=== PATIENT | male | born 1950 | race Caucasian/White ===

== ENCOUNTER 2019-03-15 20:14 | Emergency (ER) | payer MEDICARE ==
[~2019-03-15] VITALS: Ht 170.2 cm; Wt 81.7 kg
[~2019-03-15 20:14] MED LIST: AMOX1XR PO; Keflex500 MG PO; OXYACE5T PO; RXOXYACE PO; [UNRECOGNIZED DRUG - REMARK]
[2019-03-15] MEDS ORDERED: Cleocin HCl150 MG PO (21:00)
== END 2019-03-15 21:18 | disposition home or self-care (01) ==
LOC: ER 20:14
DX: L03.031 Cellulitis of right toe (principal); F17.210 Nicotine dependence, cigarettes, uncomplicated
CPT/HCPCS: 99283; A9270

== ENCOUNTER 2020-12-17 18:19 | Emergency (ER) | payer OTHER ==
[~2020-12-17] VITALS: Ht 170.2 cm; Wt 69.8 kg
[~2020-12-17 18:19] MED LIST changes: +Cleocin HCl150 MG PO
[2020-12-17] MEDS ORDERED: ROSU10TA PO (19:14)
[2020-12-17] MEDS ORDERED: AMLO5 PO (19:15)
[2020-12-17] MEDS ORDERED: ASPI81CH PO (19:15)
[2020-12-17] MEDS ORDERED: SILD25T PO (19:15)
[2020-12-17] MEDS ORDERED: PLAVIX75 MG PO (19:16)
[2020-12-17] MEDS ORDERED: PRED FORTE5 M1 RIGHTEYE (19:18)
[2020-12-17 19:20] LABS: Uric Acid, Blood 6.7 mg/dL (3.5-7.2)
[2020-12-17 20:06] LABS: BASOPHILS ABSOLUTE AUTO 0.07 K/mm3 (0.00-0.23); BASOPHILS PERCENT AUTO 0 % (0-2); EOSINOPHILS ABSOLUTE AUTO 0.24 K/mm3 (0.00-0.68); EOSINOPHILS PERCENT AUTO 1 % (0-6); Hemoglobin 15.6 g/dL (13.5-17.5); IMMATURE GRAN PERCENT AUTO 1 % (0-1); LYMPHOCYTES ABSOLUTE AUTO 1.16 K/mm3 (0.84-5.20); LYMPHOCYTES PERCENT AUTO 6 % (21-46); MONOCYTES ABSOLUTE AUTO 1.38 K/mm3 (0.16-1.47); MONOCYTES PERCENT AUTO 7 % (4-13); Mean Corpuscular HGB 30.5 pg (26.0-34.0); Mean Corpuscular HGB Conc 33.2 g/dL (31.5-36.5); Mean Corpuscular Volume 92 fL (80-100); Mean Platelet Volume 11.4 fL (9.1-12.4); NEUTROPHILS ABSOLUTE AUTO 15.62 K/mm3 (1.96-9.15); NEUTROPHILS PERCENT AUTO 84 % (41-73); Platelet Count 255 K/mm3 (150-400); RDW Coefficient Variation 12.7 % (11.7-14.2); RDW Standard Deviation 42.9 fL (35.1-46.3); Red Blood Cell Count 5.12 M/mm3 (4.30-5.90); White Blood Cell Count 18.57 K/mm3 (4.00-11.30)
[2020-12-17 20:16] LABS: Alanine Aminotransfer (ALT/SGP 35 U/L (12-78); Albumin, Blood 3.5 g/dL (3.4-5.0); Albumin/Globulin Ratio 0.9 (0.8-1.8); Alk Phos 85 U/L (50-136); Anion Gap 7 mmol/L (6-16); Aspartate Aminotrans (AST/SGOT 29 U/L (12-37); Bilirubin, Total 0.3 mg/dL (0.1-1.0); Blood Urea Nitrogen 21 mg/dL (8-24); Bun/Creatinine Ratio 17.6 (12.0-20.0); CO2, Blood 25 mmol/L (21-32); Calcium, Blood 9.1 mg/dL (8.5-10.1); Chloride, Blood 110 mmol/L (98-108); Creatinine, Blood 1.19 mg/dL (0.60-1.20); Globulin, Blood 3.9 g/dL (2.2-4.0); Glomerular Filtration Rate >60 (60-); Glucose, Blood 104 mg/dL (70-99); Sodium, Blood 142 mmol/L (136-145); Total Protein, Blood 7.4 g/dL (6.4-8.2)
== END 2020-12-17 23:04 | disposition home or self-care (01) ==
LOC: ER 18:19
PROVIDERS: Emergency Medicine; Physician Assistant
DX: M79.671 Pain in right foot (principal); F17.210 Nicotine dependence, cigarettes, uncomplicated; Z79.82 Long term (current) use of aspirin; Z79.899 Other long term (current) drug therapy; Z91.02 Food additives allergy status
CPT/HCPCS: 36415; 73630; 80053; 84550; 85025; 93922; 96374; 96375; 99284-25; J1885; J2270; J2405

== ENCOUNTER 2021-03-14 18:07 | Observation (INO) | payer OTHER ==
[~2021-03-14] VITALS: Ht 17.8 cm; Wt 80.4 kg
[~2021-03-14 18:07] MED LIST changes: +AMLO5 PO; +ASPI81CH PO; +PLAVIX75 MG PO; +PRED FORTE5 M1 RIGHTEYE; +ROSU10TA PO; +SILD25T PO
[2021-03-14 20:56] LABS: BASOPHILS PERCENT AUTO 1 % (0-2); EOSINOPHILS ABSOLUTE AUTO 0.38 K/mm3 (0.00-0.68); EOSINOPHILS PERCENT AUTO 2 % (0-6); Hematocrit 51.3 % (37.0-53.0); Hemoglobin 17.1 g/dL (13.5-17.5); IMMATURE GRAN ABSOLUTE AUTO 0.09 K/mm3 (0.00-0.10); IMMATURE GRAN PERCENT AUTO 1 % (0-1); LYMPHOCYTES ABSOLUTE AUTO 1.79 K/mm3 (0.84-5.20); LYMPHOCYTES PERCENT AUTO 11 % (21-46); MONOCYTES ABSOLUTE AUTO 1.24 K/mm3 (0.16-1.47); MONOCYTES PERCENT AUTO 8 % (4-13); Mean Corpuscular HGB 30.9 pg (26.0-34.0); Mean Corpuscular HGB Conc 33.3 g/dL (31.5-36.5); Mean Corpuscular Volume 93 fL (80-100); Mean Platelet Volume 11.6 fL (9.1-12.4); NEUTROPHILS PERCENT AUTO 77 % (41-73); Platelet Count 242 K/mm3 (150-400); RDW Coefficient Variation 12.7 % (11.7-14.2); RDW Standard Deviation 43.7 fL (35.1-46.3); Red Blood Cell Count 5.54 M/mm3 (4.30-5.90)
[2021-03-14 21:06] LABS: Alanine Aminotransfer (ALT/SGP 32 U/L (12-78); Albumin, Blood 3.5 g/dL (3.4-5.0); Albumin/Globulin Ratio 0.9 (0.8-1.8); Alk Phos 83 U/L (50-136); Anion Gap 6 mmol/L (6-16); Aspartate Aminotrans (AST/SGOT 20 U/L (12-37); Bilirubin, Total 0.3 mg/dL (0.1-1.0); Blood Urea Nitrogen 17 mg/dL (8-24); Bun/Creatinine Ratio 17.9 (12.0-20.0); CO2, Blood 27 mmol/L (21-32); Chloride, Blood 105 mmol/L (98-108); Creatinine, Blood 0.95 mg/dL (0.60-1.20); Globulin, Blood 3.9 g/dL (2.2-4.0); Glomerular Filtration Rate >60 (60-); Glucose, Blood 92 mg/dL (70-99); Potassium, Blood 4.1 mmol/L (3.5-5.5); Sodium, Blood 138 mmol/L (136-145); Total Protein, Blood 7.4 g/dL (6.4-8.2)
[2021-03-15 00:17] LABS: SARS-Cov-2 (COVID-19) PCR, MMC NEGATIVE (NEGATIVE)
[2021-03-15 04:23] LABS: BASOPHILS ABSOLUTE AUTO 0.06 K/mm3 (0.00-0.23); BASOPHILS PERCENT AUTO 1 % (0-2); EOSINOPHILS ABSOLUTE AUTO 0.37 K/mm3 (0.00-0.68); EOSINOPHILS PERCENT AUTO 3 % (0-6); Hematocrit 47.4 % (37.0-53.0); Hemoglobin 15.5 g/dL (13.5-17.5); IMMATURE GRAN ABSOLUTE AUTO 0.04 K/mm3 (0.00-0.10); IMMATURE GRAN PERCENT AUTO 0 % (0-1); LYMPHOCYTES ABSOLUTE AUTO 1.88 K/mm3 (0.84-5.20); LYMPHOCYTES PERCENT AUTO 16 % (21-46); MONOCYTES ABSOLUTE AUTO 1.09 K/mm3 (0.16-1.47); MONOCYTES PERCENT AUTO 9 % (4-13); Mean Corpuscular HGB 30.2 pg (26.0-34.0); Mean Corpuscular HGB Conc 32.7 g/dL (31.5-36.5); Mean Corpuscular Volume 92 fL (80-100); Mean Platelet Volume 11.1 fL (9.1-12.4); NEUTROPHILS ABSOLUTE AUTO 8.67 K/mm3 (1.96-9.15); NEUTROPHILS PERCENT AUTO 72 % (41-73); Platelet Count 201 K/mm3 (150-400); RDW Coefficient Variation 12.8 % (11.7-14.2); RDW Standard Deviation 43.6 fL (35.1-46.3); Red Blood Cell Count 5.13 M/mm3 (4.30-5.90); White Blood Cell Count 12.11 K/mm3 (4.00-11.30)
[2021-03-15 04:40] LABS: Anion Gap 3 mmol/L (6-16); Blood Urea Nitrogen 16 mg/dL (8-24); Bun/Creatinine Ratio 18.3 (12.0-20.0); CO2, Blood 28 mmol/L (21-32); Calcium, Blood 8.8 mg/dL (8.5-10.1); Chloride, Blood 107 mmol/L (98-108); Creatinine, Blood 0.87 mg/dL (0.60-1.20); Glomerular Filtration Rate >60 (60-); Glucose, Blood 99 mg/dL (70-99); Potassium, Blood 4.2 mmol/L (3.5-5.5); Sodium, Blood 138 mmol/L (136-145)
--- NOTE | 2021-03-15 04:58 | NUR ---
SHIFT SUMMARY PT NEW ADMIT THIS SHIFT. AAOX4. NPO. PT REPORTING DISCOMFORT AT TOLERABLE LEVEL SINCE ADMISSION, NO NAUSEA/EMESIS. ORIENTED TO ROOM + CALL LIGHT USE. IVF PER ORDERS. PT SBA UP IN ROOM. ABD SOFT/TENDER WITH PALPATION. PT CURRENTLY RESTING WELL IN BED WITH CALL LIGHT IN REACH.
--- NOTE | 2021-03-15 13:12 | NUR ---
PT TO OR AT ABOUT 1220
--- NOTE | 2021-03-15 17:59 | NUR ---
POST OP/DISCHARGE: REPORT RECEIVED FROM EXAMINATION PROCTOR TAMI. PT TO UNIT AT ABOUT 1510. UPON ASSESSMENT PT IS A/O, DENIES PAIN, VSS. SURGICAL SITE WNL. PT REQUESTING FOOD AND WATER. PT ABLE TO VOID POST OP, VSS AND ABLE TO AMBULATE TO BATHROOM, DENIES PAIN OR N/V. PT REQUESTING DISCHARGE. DR. PASTRANA NOTIFIED. DISCHARGE PACKET PRINTED AND PT EDUCATED, NO SCRIPTS NEEDED. IV DC'D WNL. PT REQUESTING TAXI RIDE TO THE [facility] TAXI CALLED AND MESSAGE LEFT AT 1750. PT DID NOT WANT TO WAIT IN ROOM FOR TAXI, SO LEFT HIS ROOM ON FOOT AFTER DISCHARGE INSTRUCTIONS. DENIED NEED FOR WHEELCHAIR.
--- NOTE | 2021-03-16 09:11 | NUR ---
03/16/21 0911 Mari Murphy VERIFICATIONS: EDIT CHART.
[2021-03-16] MEDS ORDERED: AMLO5 PO (18:31)
[2021-03-16] MEDS ORDERED: CEFP200 PO (18:31)
[2021-03-16] MEDS ORDERED: Aspir 8181 MG PO (18:31)
[2021-03-16] MEDS ORDERED: Plavix75 MG PO (18:32)
[2021-03-16] MEDS ORDERED: METR500 PO (18:33)
[2021-03-16] MEDS ORDERED: PRED FORTE5 M1 RIGHTEYE (18:34)
[2021-03-16] MEDS ORDERED: ROSU10TA PO (18:35)
[2021-03-16] MEDS ORDERED: SILDENAFIL CIT100 MG PO (18:37)
== END 2021-03-15 18:24 | disposition home or self-care (01) ==
LOC: ER 18:07 → SURS 18:08
PROVIDERS: Emergency Medicine; ADMIT Internal Medicine
DX: K42.0 Umbilical hernia with obstruction, without gangrene (principal); I10 Essential (primary) hypertension; I73.9 Peripheral vascular disease, unspecified; Z79.899 Other long term (current) drug therapy; Z20.822 Contact with and (suspected) exposure to COVID-19
CPT/HCPCS: 36415; 80048; 80053; 83605; 85025; 93005; 93010; 96374; 96375; 99285-25; G0378; J0690; J1100; J1885; J2270; J2405; J2704; J3010; J7030; J7120; U0004

== ENCOUNTER 2021-03-16 18:18 | Emergency (ER) | payer OTHER ==
[~2021-03-16] VITALS: Ht 170.2 cm; Wt 81.7 kg
[2021-03-16] MEDS ORDERED: AMLO5 PO (18:31)
[2021-03-16] MEDS ORDERED: Aspir 8181 MG PO (18:31)
[2021-03-16] MEDS ORDERED: CEFP200 PO (18:31)
[2021-03-16] MEDS ORDERED: Plavix75 MG PO (18:32)
[2021-03-16] MEDS ORDERED: METR500 PO (18:33)
[2021-03-16] MEDS ORDERED: PRED FORTE5 M1 RIGHTEYE (18:34)
[2021-03-16] MEDS ORDERED: ROSU10TA PO (18:35)
[2021-03-16] MEDS ORDERED: SILDENAFIL CIT100 MG PO (18:37)
[2021-03-16 20:19] LABS: BASOPHILS ABSOLUTE AUTO 0.06 K/mm3 (0.00-0.23); BASOPHILS PERCENT AUTO 0 % (0-2); EOSINOPHILS ABSOLUTE AUTO 0.24 K/mm3 (0.00-0.68); EOSINOPHILS PERCENT AUTO 1 % (0-6); Hemoglobin 16.1 g/dL (13.5-17.5); IMMATURE GRAN ABSOLUTE AUTO 0.08 K/mm3 (0.00-0.10); IMMATURE GRAN PERCENT AUTO 0 % (0-1); LYMPHOCYTES ABSOLUTE AUTO 2.14 K/mm3 (0.84-5.20); LYMPHOCYTES PERCENT AUTO 12 % (21-46); MONOCYTES ABSOLUTE AUTO 1.62 K/mm3 (0.16-1.47); MONOCYTES PERCENT AUTO 9 % (4-13); Mean Corpuscular HGB 30.8 pg (26.0-34.0); Mean Corpuscular HGB Conc 33.5 g/dL (31.5-36.5); Mean Corpuscular Volume 92 fL (80-100); Mean Platelet Volume 10.8 fL (9.1-12.4); NEUTROPHILS ABSOLUTE AUTO 13.98 K/mm3 (1.96-9.15); NEUTROPHILS PERCENT AUTO 77 % (41-73); Platelet Count 212 K/mm3 (150-400); RDW Coefficient Variation 12.9 % (11.7-14.2); RDW Standard Deviation 43.6 fL (35.1-46.3); Red Blood Cell Count 5.22 M/mm3 (4.30-5.90); White Blood Cell Count 18.12 K/mm3 (4.00-11.30)
== END 2021-03-16 23:20 | disposition home or self-care (01) ==
LOC: ER 18:18
PROVIDERS: Emergency Medicine
DX: R10.9 Unspecified abdominal pain (principal); F17.210 Nicotine dependence, cigarettes, uncomplicated; Z79.02 Long term (current) use of antithrombotics/antiplatelets; Z79.82 Long term (current) use of aspirin; Z98.890 Other specified postprocedural states
CPT/HCPCS: 74177; 85025; 96360-59; 99284-25; J7030; Q9967

== ENCOUNTER 2021-08-19 10:36 | Emergency (ER) | payer OTHER ==
[~2021-08-19] VITALS: Ht 170.2 cm; Wt 83.9 kg
[~2021-08-19 10:36] MED LIST changes: +Aspir 8181 MG PO; +CEFP200 PO; +METR500 PO; +Plavix75 MG PO; +SILDENAFIL CIT100 MG PO
[2021-08-19 11:15] LABS: BASOPHILS ABSOLUTE AUTO 0.04 K/mm3 (0.00-0.23); BASOPHILS PERCENT AUTO 0 % (0-2); EOSINOPHILS ABSOLUTE AUTO 0.14 K/mm3 (0.00-0.68); EOSINOPHILS PERCENT AUTO 2 % (0-6); Hematocrit 49.7 % (37.0-53.0); Hemoglobin 16.5 g/dL (13.5-17.5); IMMATURE GRAN ABSOLUTE AUTO 0.04 K/mm3 (0.00-0.10); IMMATURE GRAN PERCENT AUTO 0 % (0-1); LYMPHOCYTES ABSOLUTE AUTO 1.23 K/mm3 (0.84-5.20); LYMPHOCYTES PERCENT AUTO 14 % (21-46); MONOCYTES ABSOLUTE AUTO 0.86 K/mm3 (0.16-1.47); MONOCYTES PERCENT AUTO 10 % (4-13); Mean Corpuscular HGB 30.5 pg (26.0-34.0); Mean Corpuscular HGB Conc 33.2 g/dL (31.5-36.5); Mean Corpuscular Volume 92 fL (80-100); Mean Platelet Volume 11.1 fL (9.1-12.4); NEUTROPHILS ABSOLUTE AUTO 6.74 K/mm3 (1.96-9.15); NEUTROPHILS PERCENT AUTO 75 % (41-73); Platelet Count 281 K/mm3 (150-400); RDW Coefficient Variation 12.7 % (11.7-14.2); RDW Standard Deviation 42.9 fL (35.1-46.3); Red Blood Cell Count 5.41 M/mm3 (4.30-5.90); White Blood Cell Count 9.05 K/mm3 (4.00-11.30)
[2021-08-19 11:46] LABS: Alanine Aminotransfer (ALT/SGP 34 U/L (12-78); Albumin, Blood 2.9 g/dL (3.4-5.0); Albumin/Globulin Ratio 0.7 (0.8-1.8); Alk Phos 103 U/L (50-136); Anion Gap 5 mmol/L (6-16); Aspartate Aminotrans (AST/SGOT 35 U/L (12-37); Bilirubin, Total 0.5 mg/dL (0.1-1.0); Blood Urea Nitrogen 8 mg/dL (8-24); Bun/Creatinine Ratio 9.1 (12.0-20.0); CO2, Blood 28 mmol/L (21-32); Chloride, Blood 105 mmol/L (98-108); Creatinine, Blood 0.88 mg/dL (0.60-1.20); Globulin, Blood 4.4 g/dL (2.2-4.0); Glomerular Filtration Rate >60 (60-); Glucose, Blood 104 mg/dL (70-99); Potassium, Blood 4.7 mmol/L (3.5-5.5); Sodium, Blood 138 mmol/L (136-145); Total Protein, Blood 7.3 g/dL (6.4-8.2); Troponin I <0.015 ng/mL (0.000-0.040)
== END 2021-08-19 15:29 | disposition home or self-care (01) ==
LOC: ER 10:36
PROVIDERS: Physician Assistant
DX: R42 Dizziness and giddiness (principal); Z91.14 Patient's other noncompliance with medication regimen; I73.9 Peripheral vascular disease, unspecified; F17.210 Nicotine dependence, cigarettes, uncomplicated; Z79.899 Other long term (current) drug therapy; Z79.82 Long term (current) use of aspirin; Z79.02 Long term (current) use of antithrombotics/antiplatelets; Z86.73 Personal history of transient ischemic attack (TIA), and cerebral infarction without residual deficits
CPT/HCPCS: 36415; 70450; 71046; 80053; 84484; 85025; 93005; 93010

== ENCOUNTER 2022-11-23 11:18 | Emergency (ER) | payer OTHER ==
[~2022-11-23] VITALS: Ht 170.2 cm; Wt 77.1 kg
[2022-11-23 11:38] LABS: BASOPHILS ABSOLUTE AUTO 0.03 K/mm3 (0.00-0.23); BASOPHILS PERCENT AUTO 0 % (0-2); EOSINOPHILS ABSOLUTE AUTO 0.21 K/mm3 (0.00-0.68); EOSINOPHILS PERCENT AUTO 3 % (0-6); Hematocrit 42.7 % (37.0-53.0); Hemoglobin 14.6 g/dL (13.5-17.5); IMMATURE GRAN ABSOLUTE AUTO 0.02 K/mm3 (0.00-0.10); IMMATURE GRAN PERCENT AUTO 0 % (0-1); LYMPHOCYTES ABSOLUTE AUTO 0.57 K/mm3 (0.84-5.20); LYMPHOCYTES PERCENT AUTO 8 % (21-46); MONOCYTES ABSOLUTE AUTO 0.69 K/mm3 (0.16-1.47); MONOCYTES PERCENT AUTO 10 % (4-13); Mean Corpuscular HGB 31.9 pg (26.0-34.0); Mean Corpuscular HGB Conc 34.2 g/dL (31.5-36.5); Mean Corpuscular Volume 93 fL (80-100); Mean Platelet Volume 10.6 fL (9.1-12.4); NEUTROPHILS ABSOLUTE AUTO 5.49 K/mm3 (1.96-9.15); NEUTROPHILS PERCENT AUTO 78 % (41-73); Platelet Count 212 K/mm3 (150-400); RDW Coefficient Variation 12.6 % (11.7-14.2); RDW Standard Deviation 43.6 fL (35.1-46.3); Red Blood Cell Count 4.58 M/mm3 (4.30-5.90); White Blood Cell Count 7.01 K/mm3 (4.00-11.30)
[2022-11-23 11:59] LABS: Albumin, Blood 3.1 g/dL (3.4-5.0); Albumin/Globulin Ratio 0.9 (0.8-1.8); Bilirubin, Total 0.2 mg/dL (0.1-1.0); Bun/Creatinine Ratio 15.4 (12.0-20.0); Creatinine, Blood 0.97 mg/dL (0.60-1.20); Globulin, Blood 3.6 g/dL (2.2-4.0); Potassium, Blood 4.1 mmol/L (3.5-5.5); Total Protein, Blood 6.7 g/dL (6.4-8.2)
[2022-11-23] MEDS ORDERED: METO25 PO (13:01)
[2022-11-23] MEDS ORDERED: ELIQUIS5 MG PO (13:01)
[2022-11-23 13:41] LABS: U Amphetamine Screen DETECTED; U Barbituate Screen Not Detected; U Benzodiazapine Screen Not Detected; U Buprenorphine Screen Not Detected; U Cannabinoids Screen Not Detected; U Cocaine Screen Not Detected; U Methadone Screen Not Detected; U Methamphetamine Screen DETECTED; U Opiates Screen Not Detected; U Oxycodone Screen Not Detected; U Phencyclidine Screen Not Detected; U Propoxyphene Screen Not Detected
== END 2022-11-23 13:35 | disposition home or self-care (01) ==
LOC: ER 11:18
PROVIDERS: Emergency Medicine; Student in an Organized Health Care Education/Training Program
DX: I48.91 Unspecified atrial fibrillation (principal); F17.210 Nicotine dependence, cigarettes, uncomplicated; Z79.899 Other long term (current) drug therapy
CPT/HCPCS: 71045; 80053; 84484; 85025; 93005; 93010

== ENCOUNTER 2023-05-31 18:34 | Emergency (ER) | payer OTHER ==
[~2023-05-31] VITALS: Ht 170.2 cm; Wt 81.7 kg
[~2023-05-31 18:34] MED LIST changes: +ELIQUIS5 MG PO; +METO25 PO
[2023-05-31 18:35] VITALS: BP 126/84
== END 2023-05-31 18:45 | disposition home or self-care (01) ==
LOC: ER 18:34
DX: M25.531 Pain in right wrist (principal); Z79.899 Other long term (current) drug therapy; Z79.82 Long term (current) use of aspirin; Z79.52 Long term (current) use of systemic steroids; F17.210 Nicotine dependence, cigarettes, uncomplicated
CPT/HCPCS: 99282

== ENCOUNTER 2023-11-01 00:54 | Emergency (ER) | payer OTHER ==
[~2023-11-01] VITALS: Ht 172.7 cm; Wt 81.7 kg
[2023-11-01] MEDS ORDERED: Ipratropium/Albuterol SulF 2.5-0.5MG/3 ML Amp INH ONE (01:20)
[2023-11-01 01:53] LABS: Source, Urine Clean Catch
[2023-11-01 01:55] LABS: Bicarbonate Venous 24.1 mmol/L (24.0-30.0); PCO2 Venous 48.1 mmHg (38-42); pH Blood Venous 7.35 (7.34-7.37)
[2023-11-01 02:01] LABS: BASOPHILS ABSOLUTE AUTO 0.06 K/mm3 (0.00-0.23); BASOPHILS PERCENT AUTO 1 % (0-2); EOSINOPHILS ABSOLUTE AUTO 0.32 K/mm3 (0.00-0.68); EOSINOPHILS PERCENT AUTO 3 % (0-6); Hemoglobin 18.1 g/dL (13.5-17.5); IMMATURE GRAN ABSOLUTE AUTO 0.03 K/mm3 (0.00-0.10); IMMATURE GRAN PERCENT AUTO 0 % (0-1); LYMPHOCYTES ABSOLUTE AUTO 1.03 K/mm3 (0.84-5.20); LYMPHOCYTES PERCENT AUTO 11 % (21-46); MONOCYTES ABSOLUTE AUTO 0.91 K/mm3 (0.16-1.47); MONOCYTES PERCENT AUTO 10 % (4-13); Mean Corpuscular HGB 30.7 pg (26.0-34.0); Mean Corpuscular HGB Conc 32.6 g/dL (31.5-36.5); Mean Corpuscular Volume 94 fL (80-100); Mean Platelet Volume 10.6 fL (9.1-12.4); NEUTROPHILS ABSOLUTE AUTO 7.18 K/mm3 (1.96-9.15); NEUTROPHILS PERCENT AUTO 75 % (41-73); Platelet Count 248 K/mm3 (150-400); RDW Coefficient Variation 13.6 % (11.7-14.2); RDW Standard Deviation 47.8 fL (35.1-46.3); White Blood Cell Count 9.53 K/mm3 (4.00-11.30)
[2023-11-01 02:08] LABS: Bilirubin, Urine Neg (Neg); Blood, Urine 1+ (Neg); Glucose Qualitative, Urine Neg (Neg); Ketones, Urine Neg (Neg); Leukocyte Esterase, Urine Neg (Neg); Nitrite, Urine Neg (Neg); Protein, Urine 1+ (Neg); Specific Gravity, Urine 1.015 (1.003-1.022); Urobilinogen, Urine NORM (Normal)
[2023-11-01 02:11] LABS: Hematocrit 55.5 % (37.0-53.0)
[2023-11-01 02:23] LABS: Appearance, Urine Clear (Clear); Color, Urine Yellow (P-Yellow)
[2023-11-01 02:24] LABS: Bacteria Not Seen /hpf; Red Blood Cells, Urine 0-2 /hpf (0-2); Squamous Epithelial Cells Not Seen /hpf (Few); White Blood Cells, Urine Not Seen /hpf (0-5)
[2023-11-01] MEDS ORDERED: NS 1,000 ML IV SCH ×2 (02:30→04:30)
[2023-11-01 02:31] LABS: U Amphetamine Screen DETECTED; U Barbituate Screen Not Detected; U Benzodiazapine Screen Not Detected; U Buprenorphine Screen Not Detected; U Cannabinoids Screen Not Detected; U Cocaine Screen Not Detected; U Methadone Screen Not Detected; U Methamphetamine Screen DETECTED; U Opiates Screen Not Detected; U Oxycodone Screen Not Detected; U Phencyclidine Screen Not Detected
[2023-11-01 02:33] LABS: Albumin, Blood 3.3 g/dL (3.4-5.0); Albumin/Globulin Ratio 0.7 (0.8-1.8); Bilirubin, Total 0.3 mg/dL (0.1-1.0); Bun/Creatinine Ratio 14.5 (12.0-20.0); Calcium, Blood 9.1 mg/dL (8.5-10.1); Creatinine, Blood 0.9 mg/dL (0.60-1.20); Globulin, Blood 4.6 g/dL (2.2-4.0); Magnesium, Blood 1.9 mg/dL (1.6-2.4); Phosphorus, Blood 4.5 mg/dL (2.5-4.9); Potassium, Blood 4.4 mmol/L (3.5-5.5); Total Protein, Blood 7.9 g/dL (6.4-8.2)
[2023-11-01 03:04] LABS: D-Dimer, Quantitative 0.32 mg/L FEU (0.00-0.52); International Normalized Ratio 0.98; Prothrombin Time Results 10.3 Sec (9.7-11.5)
[2023-11-01 06:00] VITALS: BP 138/82
[2023-11-01] MEDS ORDERED: DELTASONE20 MG PO ×2 (06:43→09:16)
[2023-11-01] MEDS ORDERED: PredniSONE 20 MG Tab PO ONE (06:45)
[2023-11-01] MEDS ORDERED: ALBU90OI INH (06:45)
== END 2023-11-01 07:12 | disposition home or self-care (01) ==
LOC: ER 00:54
PROVIDERS: Emergency Medicine
DX: J44.1 Chronic obstructive pulmonary disease with (acute) exacerbation (principal); F15.90 Other stimulant use, unspecified, uncomplicated; E86.0 Dehydration; Z79.899 Other long term (current) drug therapy; Z79.82 Long term (current) use of aspirin; Z79.52 Long term (current) use of systemic steroids; F17.210 Nicotine dependence, cigarettes, uncomplicated
CPT/HCPCS: 71045; 80053; 81001; 82803; 83605; 83735; 84100; 84145; 84484; 85025; 85379; 85610; 85730; 93005; 93010; 94640; 94664; 96360; 99285-25; J7030; J7512

== ENCOUNTER 2024-03-11 13:20 | Inpatient (IN) | payer OTHER ==
[~2024-03-11] VITALS: Ht 170.2 cm; Wt 75.6 kg
[~2024-03-11 13:20] MED LIST changes: +ALBU90OI INH; +B-1100 M1 PO; +DELTASONE20 MG PO; +METO25ER PO; +MULVITA PO; +TAMS.4ER PO; +THERA-D2000 UNIT PO
[2024-03-11 13:50] LABS: BASOPHILS ABSOLUTE AUTO 0.05 K/mm3 (0.00-0.23); BASOPHILS PERCENT AUTO 0 % (0-2); EOSINOPHILS ABSOLUTE AUTO 0.17 K/mm3 (0.00-0.68); EOSINOPHILS PERCENT AUTO 2 % (0-6); Hematocrit 45.4 % (37.0-53.0); Hemoglobin 14.7 g/dL (13.5-17.5); IMMATURE GRAN ABSOLUTE AUTO 0.03 K/mm3 (0.00-0.10); IMMATURE GRAN PERCENT AUTO 0 % (0-1); LYMPHOCYTES ABSOLUTE AUTO 0.58 K/mm3 (0.84-5.20); LYMPHOCYTES PERCENT AUTO 5 % (21-46); MONOCYTES ABSOLUTE AUTO 0.93 K/mm3 (0.16-1.47); MONOCYTES PERCENT AUTO 8 % (4-13); Mean Corpuscular HGB 31.5 pg (26.0-34.0); Mean Corpuscular HGB Conc 32.4 g/dL (31.5-36.5); Mean Corpuscular Volume 97 fL (80-100); Mean Platelet Volume 10.7 fL (9.1-12.4); NEUTROPHILS ABSOLUTE AUTO 9.44 K/mm3 (1.96-9.15); NEUTROPHILS PERCENT AUTO 84 % (41-73); Platelet Count 275 K/mm3 (150-400); RDW Coefficient Variation 13.5 % (11.7-14.2); Red Blood Cell Count 4.66 M/mm3 (4.30-5.90)
[2024-03-11] MEDS ORDERED: MIRALAX11910 PO (13:58)
[2024-03-11] MEDS ORDERED: SIME80CH PO (13:58)
[2024-03-11] MEDS ORDERED: DONEPEZIL HCL10 MG PO (13:58)
[2024-03-11] MEDS ORDERED: Vitamin B-12100 MCG PO (14:00)
[2024-03-11 14:01] LABS: International Normalized Ratio 1.04; Prothrombin Time Results 11.1 Sec (9.7-11.5)
[2024-03-11] MEDS ORDERED: Diltiazem HCl 5 MG / ML 5ML Vial IV ONE (14:15)
[2024-03-11 14:20] LABS: Albumin, Blood 2.9 g/dL (3.4-5.0); Albumin/Globulin Ratio 0.7 (0.8-1.8); Bilirubin, Total 0.6 mg/dL (0.1-1.0); Bun/Creatinine Ratio 10.2 (12.0-20.0); Calcium, Blood 9.3 mg/dL (8.5-10.1); Creatinine, Blood 0.88 mg/dL (0.60-1.20); Magnesium, Blood 2.2 mg/dL (1.6-2.4); Potassium, Blood 4.3 mmol/L (3.5-5.5); Total Protein, Blood 6.9 g/dL (6.4-8.2)
[2024-03-11] MEDS ORDERED: Metoprolol Succinate 50 MG TABCR PO ONE (15:05)
[2024-03-11] MEDS ORDERED: MethylPREDNISolone Sod Succ 125 MG Vial IV ONE (16:30)
[2024-03-11] MEDS ORDERED: dilTIAZem HCL 125 MG in Dextrose 5% 100 ML IV SCH ×2 (16:30→18:10)
[2024-03-11] MEDS ORDERED: Acetaminophen 325 MG TABLET PO PRN (16:50)
[2024-03-11] MEDS ORDERED: Albuterol 2.5 MG/3 ML VIAL INH PRN (16:50)
[2024-03-11] MEDS ORDERED: Ondansetron HCl 2 MG / ML 2ML Vial IV PRN (16:50)
[2024-03-11] MEDS ORDERED: Ipratropium/Albuterol SulF 2.5-0.5MG/3 ML Amp INH SCH (16:50)
[2024-03-11 17:36] LABS: U Amphetamine Screen DETECTED; U Barbituate Screen Not Detected; U Benzodiazapine Screen Not Detected; U Buprenorphine Screen Not Detected; U Cannabinoids Screen Not Detected; U Cocaine Screen Not Detected; U Methadone Screen Not Detected; U Methamphetamine Screen DETECTED; U Opiates Screen Not Detected; U Oxycodone Screen Not Detected; U Phencyclidine Screen Not Detected
[2024-03-11 17:53] VITALS: BP 184/110
[2024-03-11] MEDS ORDERED: Azithromycin 500 MG in NS 250 ML IV SCH (18:00)
--- NOTE | 2024-03-11 18:46 | NUR ---
ARRIVAL TO PCU: PT ARRIVED TO PCU-3 THIS PM VIA JENNIFFER. REPORT FROM ANGEL RN, THIS RN ASSUMED CARE. PT ABLE TO STAND AND TRANSFER SELF TO BED W/ SBA. ALERT, ORIENTED X3-4; CONFUSED AT TIMES, POOR HISTORIAN. HX DEMENTIA. HR 90-120'S, AFIB ON TELE. SBP 180'S, DENIES CHEST PAIN/PRESSURE. DILT GTT INITIATED AT 5 MG/HR. SPO2 >90% ON 2L VIA NC. AFEBRILE. PT ORIENTED TO ROOM/UNIT/CALL LIGHT. FIRE SAFETY/IGNITION RISK ASSESSED; PT IS A CURRENT SMOKER BUT REPORTS "I QUIT TODAY". DENIES HAVING ANY IGNITION SOURCES PRESENT, REFUSES A NICOTINE PATCH. PT REPORTS CURRENT METH USE & DAILY ALCOHOL CONSUMPTION. SITTING UP IN BED EATING DINNER, NO OTHER NEEDS AT THIS TIME. CALL LIGHT IN REACH.
[2024-03-11 19:00] VITALS: BP 148/96
[2024-03-11 19:22] VITALS: BP 148/96
[2024-03-11] MEDS ORDERED: Hair, Skin & N1 EACH PO (20:47)
[2024-03-11] MEDS ORDERED: Donepezil HCl 5 MG Tab PO SCH (21:00)
[2024-03-11] MEDS ORDERED: MethylPREDNISolone Sod Succ 40 MG VIAL IV SCH (21:00)
[2024-03-11] MEDS ORDERED: Apixaban 5 MG Tab PO SCH (21:00)
[2024-03-11] MEDS ORDERED: Tamsulosin HCl 0.4 MG Cap PO SCH (21:00)
[2024-03-11 23:03] VITALS: BP 147/109
[2024-03-12 03:17] VITALS: BP 137/90
[2024-03-12 05:02] LABS: Calcium, Blood 9.5 mg/dL (8.5-10.1); Creatinine, Blood 1.13 mg/dL (0.60-1.20); Magnesium, Blood 2.1 mg/dL (1.6-2.4); Potassium, Blood 4.6 mmol/L (3.5-5.5)
[2024-03-12] MEDS ORDERED: TraMADol HCl 50 MG Tab PO PRN (05:25)
--- NOTE | 2024-03-12 05:44 | NUR ---
SHIFT SUMMARY PT A&O X3, ABLE TO MAKE NEEDS KNOWN, ALTHOUGH FORGETFUL AT TIMES. BED ALARM ON DUE TO IMPULSIVITY. VSS, AFEBRILE, SPO2 >95% ON 2L NC, LUNGS WITH WHEEZES IN THE BASES. HR AFIB 80'S TO 100'S ON TELE. DILT DRIP PUT ON STANDBY AT ASSUMPTION OF CARE DUE TO HR BEING IN THE 80 S. PT DENIES CP. ENDORSES SOB, ESPECIALLY ON EXERTION. PT REPORTS RECENT CIGARETTE USE BUT DECLINES A NICOTINE PATCH AT THIS TIME. PT ALSO ENDORSES ALCOHOL USE BUT IS A POOR HISTORIAN, HE REPORTS THAT HE CONSUMES "1 CAN" OF ALCOHOL PER DAY, BUT HAS NOT HAD A DRINK IN A LONG TIME BUT CANNOT TELL ME WHEN HIS LAST DRINK WAS. MED LIST RECEIVED FROM [facility], MED REC COMPLETED. PT HAD COMPLAINT OF BACK PAIN THIS SHIFT, MEDICATED PER EMAR, HEAT PAD APPLIED AND PT REPOSITIONED. PT IS A STAND BY ASSIST, USES URINAL INDEPENDENTLY. PT IS RESTING COMFORTABLY IN RECLINER, CALL LIGHT WITHIN REACH, BED IN LOWEST POSITION, BREATHING EVEN AND UNLABORED.
[2024-03-12 08:47] VITALS: BP 130/92
[2024-03-12] MEDS ORDERED: Metoprolol Succinate 50 MG TABCR PO SCH (09:00)
[2024-03-12] MEDS ORDERED: AmLODIPine Besylate 5 MG Tab PO SCH (09:00)
[2024-03-12 12:41] VITALS: BP 121/99
--- NOTE | 2024-03-12 12:55 | NUR ---
REASSESSMENT PT WAS ABLE TO BE WEANED OFF OXYGEN THIS MORNING AND HAS MAINTAINED SPO2 >90 EVEN WITH ACTIVITY. HIS LUNGS HAVE FAINT EXPIRATORY WHEEZES IN THE BASES. REMAINS IN AFIB WITH RATE IN THE 80S. PT HAD A BM THIS MORNING AND REPORTED THAT IT HAD BLOOD IN IT, BUT FLUSHED IT BEFORE ANY STAFF SAW. ASKED PT TO NOT FLUSH ANY FUTURE BM'S SO THEY CAN BE ASSESSED. H/H WNL AT ADMIT, BP STABLE, DENIES DIZZINESS WHEN STANDING. PT'S NIECE VISITED PT AND WAS UPDATED BY NURSING STAFF.
--- NOTE | 2024-03-12 16:08 | NUR ---
PT HAS BEEN GETTING IRRITATED THIS AFTERNOON WITH NOT BEING ABLE TO GET UP FREELY IN HIS ROOM. PT IS UNSTEADY ON HIS FEET, BUT UNAWARE OF THE DANGERS OF THIS BECAUSE HE SAYS HE IS FINE BECAUSE HE ALWAYS WALKS LIKE THAT. EDUCATION PROVIDED ABOUT THE IMPORTANCE OF FALL PRECAUTIONS AND INCREASED RISK OF INJURY FORM FALLING WHILE IN THE HOSPITAL. ALSO EDUCATED ON WHAT IS DONE TO HELP PREVENT FALLS AND WHY. PT IS STILL DISAGREEABLE AND WANTS TO MOVE AROUND HIS ROOM FREELY. PT TAKEN ON LONG WALKS WITH STAFF, PT GIVEN SNACKS, TV ON, BUT PT STILL RESTLESS AND REFUSING FALL PRECAUTIONS. PT ONCE AGAIN INFORMED OF THE RISK OF INJURY BY REFUSING THESE FALL PRECAUTIONS. NONSKID SOCKS ON PT'S FEET.
--- NOTE | 2024-03-12 17:52 | NUR ---
SHIFT SUMMARY PT WAS WEANED OFF OXYGEN THIS MORNING AND HAS REMAINED OFF. HIS LUNGS STILL HAVE A FEW FAINT WHEEZES IN THE BASES. HIS HR REMAINS IN AFIB, BUT HIS RATE HAS BEEN CONTROLLED INTHE 80S. WHEN HE UP WALKING AORUND THIS AFTERNOON HIS RATE WAS IN THE 110-120 RANGE, BUT SLOWED BACK DOWN ONCE HE WAS RESTING. HIS NIECE WAS IN AND SPOKE WITH CARE MANAGMENT. DR. FERNANDO ROUNDED AND WAS INFORMED ABOUT PT'S REPORTS OF BLOOD IN HIS STOOL. PT NOW MEDICAL STATUS. CONTINUING WITH PLAN OF CARE.
[2024-03-12 19:23] VITALS: BP 131/100
[2024-03-13 03:05] VITALS: BP 143/89
[2024-03-13 04:30] LABS: BASOPHILS ABSOLUTE AUTO 0.04 K/mm3 (0.00-0.23); BASOPHILS PERCENT AUTO 0 % (0-2); EOSINOPHILS ABSOLUTE AUTO 0.06 K/mm3 (0.00-0.68); EOSINOPHILS PERCENT AUTO 0 % (0-6); Hematocrit 43.9 % (37.0-53.0); Hemoglobin 14.1 g/dL (13.5-17.5); IMMATURE GRAN ABSOLUTE AUTO 0.11 K/mm3 (0.00-0.10); IMMATURE GRAN PERCENT AUTO 1 % (0-1); LYMPHOCYTES ABSOLUTE AUTO 0.92 K/mm3 (0.84-5.20); LYMPHOCYTES PERCENT AUTO 5 % (21-46); MONOCYTES PERCENT AUTO 8 % (4-13); Mean Corpuscular HGB 31.5 pg (26.0-34.0); Mean Corpuscular HGB Conc 32.1 g/dL (31.5-36.5); Mean Corpuscular Volume 98 fL (80-100); Mean Platelet Volume 11.2 fL (9.1-12.4); NEUTROPHILS ABSOLUTE AUTO 16.28 K/mm3 (1.96-9.15); NEUTROPHILS PERCENT AUTO 86 % (41-73); Platelet Count 257 K/mm3 (150-400); RDW Coefficient Variation 13.6 % (11.7-14.2); RDW Standard Deviation 49.1 fL (35.1-46.3); Red Blood Cell Count 4.48 M/mm3 (4.30-5.90); White Blood Cell Count 18.91 K/mm3 (4.00-11.30)
--- NOTE | 2024-03-13 04:38 | NUR ---
SHIFT SUMMARY PT A&O X3, ABLE TO MAKE NEEDS KNOWN, ALTHOUGH FORGETFUL AT TIMES. NO ACUTE EVENTS THIS SHIFT. VSS, AFEBRILE, SPO2 >93% RA, LUNGS WITH WHEEZES IN THE BASES. HR AFIB 60'S TO 100'S ON TELE. PT DENIES CP OR WORSENING SOB. PT IS A STAND BY ASSIST, USES URINAL INDEPENDENTLY. PT IS RESTING COMFORTABLY, CALL LIGHT WITHIN REACH, BED IN LOWEST POSITION, BREATHING EVEN AND UNLABORED.
[2024-03-13 04:52] LABS: Albumin, Blood 2.8 g/dL (3.4-5.0); Anion Gap 7 mmol/L (3-11); Blood Urea Nitrogen 26 mg/dL (8-24); Bun/Creatinine Ratio 26.1 (12.0-20.0); CO2, Blood 27 mmol/L (21-32); Calcium, Blood 9.1 mg/dL (8.5-10.1); Chloride, Blood 108 mmol/L (98-108); Glomerular Filtration Rate 79 (60-); Glucose, Blood 126 mg/dL (70-99); Magnesium, Blood 2.2 mg/dL (1.6-2.4); Phosphorus, Blood 3.6 mg/dL (2.5-4.9); Potassium, Blood 4.3 mmol/L (3.5-5.5); Sodium, Blood 138 mmol/L (136-145)
--- NOTE | 2024-03-13 07:23 | NUR ---
RECEIVED BEDSIDE SHIFT REPORT FROM KASSI. PT SAT UP ON EDGE OF BED SAYING HE CANNOT BREATHE. ATTEMPTED TO GRAB OXYGEN AND PT SAYS, MY OXYGEN IS FINE, I JUST CAN'T CATCH MY BREATH. PT WITH RALES IN THE BASES, AUDIBLE UPPER AIRWAY WHEEZES, SHALLOW, QUICK BREATHS, ENCOURAGED TO TAKE DEEP BREATHS AND TO COUGH. RT DWAYNE IN FOR BREATHING TREATMENT.
[2024-03-13 09:00] VITALS: BP 124/89
[2024-03-13] MEDS ORDERED: PredniSONE 20 MG Tab PO SCH (09:00)
--- NOTE | 2024-03-13 09:55 | NUR ---
RAY HAS BEEN UP AND WALKING THE HALLS, HE DOES WELL AMBULATING. HE IS COMPLAINING OF PAIN ABOUT THE LEFT FLANK. MEDICATED WITH TRAMADOL AND TYLENOL FOR RELIEF. HE IS RESTLESS. TELE AFIB, VITALS STABLE. REPORT TO [facility]. WILL WALK PT UPSTAIRS WHEN READY.
[2024-03-13 10:29] VITALS: BP 109/71
[2024-03-13] MEDS ORDERED: Ketorolac Tromethamine 30mg Vial IV ONE (13:00)
[2024-03-13 14:03] VITALS: BP 136/90
[2024-03-13] MEDS ORDERED: Ipratropium/Albuterol SulF 2.5-0.5MG/3 ML Amp INH PRN (15:25)
[2024-03-13 16:46] LABS: Source, Urine Clean Catch
--- NOTE | 2024-03-13 16:49 | NUR ---
SHIFT SUMMARY- PT TRANSFERED TO MEDICAL FLOOR FROM PCU. PT WAS CONFUSED UPON ARRIVAL. HE BEGAN WANDERING INTO OTHER PT ROOMS AND ASKING THEM IF THEY HAD ANY PAIN MEDS. PT WAS REDIRECTED. HE WAS WOBBLY ON HIS FEET ONCE OR TWICE, WHEN STAFF ATTEMPTED TO HELP HE BECAME IRRITABLE SAYING HE IS A . PT HAD OT IN TO SEE HIM FOR A COG EVAL HE SCORED 16 PER OT. PT IN BED NAPPING AT THIS TIME. HE IS ON TELE RUNNING A-FIB, HE HAS HAD SOME ANDRE EPISODES. DR MAIER, METOPROLOL ORDER CHANGED. NO CURRENT S&S OF DISTRESS NOTED. PT SCHEDULED TO TRANSFER TO ROOM 351 ONCE IT IS CLEAN, HE GETS LOST IN THE OPEN HALLWAYS AND IS CONFUSED AND WANDERING INTO OTHER PRIVATE ROOMS.
[2024-03-13 16:56] LABS: Bilirubin, Urine Neg (Neg); Blood, Urine 5+ (Neg); Color, Urine Yellow (P-Yellow); Glucose Qualitative, Urine Neg (Neg); Ketones, Urine Neg (Neg); Leukocyte Esterase, Urine Neg (Neg); Nitrite, Urine Neg (Neg); Protein, Urine 2+ (Neg); Urobilinogen, Urine 1+ (Normal)
[2024-03-13 17:17] LABS: Amorphous Light (0-Heavy); Appearance, Urine Hazy (Clear); Mucus Light (0-Heavy)
[2024-03-13 17:18] LABS: Bacteria Mod /hpf; Red Blood Cells, Urine 50-100 /hpf (0-2); Squamous Epithelial Cells Rare /hpf (Few)
[2024-03-13 17:19] LABS: Calcium Oxalate Crystals Many /hpf
[2024-03-13] MEDS ORDERED: CefTRIAXone Sodium 1,000 MG in NS 100 ML IV SCH (18:30)
[2024-03-13] MEDS ORDERED: NS 250 ML IV PRN (18:40)
--- NOTE | 2024-03-13 19:08 | NUR ---
TRANSFER NOTE- PT TRANSFERED TO [facility], VERBAL REPORT COMPLETED WITH KHARI SONG. PT WAS TRANSFERED IN THE HOSPITAL BED. NO S&S OF DISTRESS AT THE TIME OF TRANSFER.
[2024-03-13] MEDS ORDERED: Metoprolol Succinate 25 MG TABCR PO SCH (21:00)
[2024-03-13 21:25] VITALS: BP 137/108
[2024-03-14 04:44] VITALS: BP 136/107
[2024-03-14 06:02] LABS: BASOPHILS ABSOLUTE AUTO 0.03 K/mm3 (0.00-0.23); BASOPHILS PERCENT AUTO 0 % (0-2); EOSINOPHILS PERCENT AUTO 1 % (0-6); Hematocrit 44.3 % (37.0-53.0); Hemoglobin 14.4 g/dL (13.5-17.5); IMMATURE GRAN ABSOLUTE AUTO 0.12 K/mm3 (0.00-0.10); IMMATURE GRAN PERCENT AUTO 1 % (0-1); LYMPHOCYTES ABSOLUTE AUTO 0.76 K/mm3 (0.84-5.20); LYMPHOCYTES PERCENT AUTO 5 % (21-46); MONOCYTES PERCENT AUTO 8 % (4-13); Mean Corpuscular HGB 31.9 pg (26.0-34.0); Mean Corpuscular HGB Conc 32.5 g/dL (31.5-36.5); Mean Corpuscular Volume 98 fL (80-100); Mean Platelet Volume 11.5 fL (9.1-12.4); NEUTROPHILS ABSOLUTE AUTO 13.37 K/mm3 (1.96-9.15); NEUTROPHILS PERCENT AUTO 85 % (41-73); Platelet Count 255 K/mm3 (150-400); RDW Coefficient Variation 13.8 % (11.7-14.2); Red Blood Cell Count 4.52 M/mm3 (4.30-5.90); White Blood Cell Count 15.68 K/mm3 (4.00-11.30)
--- NOTE | 2024-03-14 06:16 | NUR ---
SHIFT SUMMARY: PATIENT FULLY ORIENTED, SLURRED SPEECH THROUGH TOP ROOF DENTURES. PATIENT CLAIMS HIGH PAIN LEVELS. WHEN GIVEN TRAMADOL AND ACETAMINOPHEN, PATIENT WOULD APPEAR TO FALL ASLEEP IN THIRTY MINUTES. RESTLESS. WALKING BY SELF.
[2024-03-14 06:34] LABS: Calcium, Blood 9.1 mg/dL (8.5-10.1); Creatinine, Blood 1.46 mg/dL (0.60-1.20); Potassium, Blood 4.9 mmol/L (3.5-5.5)
[2024-03-14 07:47] VITALS: BP 133/85
[2024-03-14 14:57] VITALS: BP 144/82
--- NOTE | 2024-03-14 16:20 | NUR ---
SHIFT SUMMARY Pt remains A&Ox3 this shift, forgetful at times. Restful sleeps this shift. Independent with ADLs. Continent of urine. No BM this shift. Low back pain managed with po Tylenol. No needs id or verbalized at this time. Will continue to monitor.
[2024-03-14 20:19] VITALS: BP 159/127
[2024-03-15 04:43] VITALS: BP 124/95
[2024-03-15 05:26] LABS: BASOPHILS ABSOLUTE AUTO 0.04 K/mm3 (0.00-0.23); BASOPHILS PERCENT AUTO 0 % (0-2); EOSINOPHILS ABSOLUTE AUTO 0.14 K/mm3 (0.00-0.68); EOSINOPHILS PERCENT AUTO 1 % (0-6); Hematocrit 45.5 % (37.0-53.0); Hemoglobin 14.8 g/dL (13.5-17.5); IMMATURE GRAN ABSOLUTE AUTO 0.06 K/mm3 (0.00-0.10); IMMATURE GRAN PERCENT AUTO 1 % (0-1); LYMPHOCYTES ABSOLUTE AUTO 0.74 K/mm3 (0.84-5.20); LYMPHOCYTES PERCENT AUTO 6 % (21-46); MONOCYTES ABSOLUTE AUTO 1.27 K/mm3 (0.16-1.47); MONOCYTES PERCENT AUTO 10 % (4-13); Mean Corpuscular HGB 31.4 pg (26.0-34.0); Mean Corpuscular HGB Conc 32.5 g/dL (31.5-36.5); Mean Corpuscular Volume 97 fL (80-100); Mean Platelet Volume 11.6 fL (9.1-12.4); NEUTROPHILS ABSOLUTE AUTO 10.95 K/mm3 (1.96-9.15); NEUTROPHILS PERCENT AUTO 83 % (41-73); Platelet Count 248 K/mm3 (150-400); RDW Coefficient Variation 13.6 % (11.7-14.2); RDW Standard Deviation 48.3 fL (35.1-46.3); Red Blood Cell Count 4.71 M/mm3 (4.30-5.90)
[2024-03-15 05:48] LABS: Bun/Creatinine Ratio 27.1 (12.0-20.0); Creatinine, Blood 1.07 mg/dL (0.60-1.20); Potassium, Blood 4.2 mmol/L (3.5-5.5)
--- NOTE | 2024-03-15 06:32 | NUR ---
SHIFT SUMMARY: PATIENT FULLY ORIENTED, RESTLESS. PATIENT MOVED INDEPENDENTLY IN ROOM. PATIENT ON TELE, RUNNING AFIB. PATIENT MADE NO COMPLAINTS TO NURSE. PATIENT SLEPT INTERMITTENTLY.
[2024-03-15 08:35] VITALS: BP 139/93
[2024-03-15 15:06] VITALS: BP 153/142
[2024-03-15 15:49] VITALS: BP 164/81
--- NOTE | 2024-03-15 16:35 | NUR ---
SHIFT SUMMARY Pt with impulsive demanding behavior this am in hallway demanding a belt to walk to coffee shop. A&O to self and place. VSS. Denies pain. Ambulating independently on RA. IV antibiotics given as ordered. Resting quietly this pm. No needs id or verbalized at this time.
[2024-03-15 20:28] VITALS: BP 152/84
--- NOTE | 2024-03-15 21:19 | NUR ---
TOOK OVER FOR PRIMARY NURSE WHEN SHE TOOK HER BREAK. PT DENIES NEEDS AT THIS TIME.
--- NOTE | 2024-03-15 23:44 | NUR ---
ASSUMED CARE WHILE PRIMARY NURSE TOOK BREAK. PT DENIES NEEDS AT THIS TIME.
--- NOTE | 2024-03-16 02:58 | NUR ---
ASSUMED CARE OF PT WHEN PRIMARY RN AT BREAK. PT DENIES NEEDS AT THIS TIME.
[2024-03-16 04:46] LABS: BASOPHILS ABSOLUTE AUTO 0.04 K/mm3 (0.00-0.23); BASOPHILS PERCENT AUTO 0 % (0-2); EOSINOPHILS ABSOLUTE AUTO 0.17 K/mm3 (0.00-0.68); EOSINOPHILS PERCENT AUTO 2 % (0-6); Hematocrit 43.8 % (37.0-53.0); Hemoglobin 14.2 g/dL (13.5-17.5); IMMATURE GRAN ABSOLUTE AUTO 0.08 K/mm3 (0.00-0.10); IMMATURE GRAN PERCENT AUTO 1 % (0-1); LYMPHOCYTES ABSOLUTE AUTO 0.86 K/mm3 (0.84-5.20); LYMPHOCYTES PERCENT AUTO 8 % (21-46); MONOCYTES ABSOLUTE AUTO 1.01 K/mm3 (0.16-1.47); MONOCYTES PERCENT AUTO 9 % (4-13); Mean Corpuscular HGB 31.1 pg (26.0-34.0); Mean Corpuscular HGB Conc 32.4 g/dL (31.5-36.5); Mean Corpuscular Volume 96 fL (80-100); Mean Platelet Volume 11.3 fL (9.1-12.4); NEUTROPHILS ABSOLUTE AUTO 9.04 K/mm3 (1.96-9.15); NEUTROPHILS PERCENT AUTO 81 % (41-73); Platelet Count 255 K/mm3 (150-400); RDW Coefficient Variation 13.5 % (11.7-14.2); RDW Standard Deviation 47.8 fL (35.1-46.3); Red Blood Cell Count 4.57 M/mm3 (4.30-5.90)
[2024-03-16 06:06] VITALS: BP 150/105
[2024-03-16 07:31] VITALS: BP 168/101
[2024-03-16] MEDS ORDERED: ALBU90OI INH (14:03)
[2024-03-16] MEDS ORDERED: AMLO5 PO (14:06)
[2024-03-16] MEDS ORDERED: Acetaminophen650 M1 PO (14:06)
[2024-03-16] MEDS ORDERED: FLUT1DIS2 INH (14:07)
[2024-03-16] MEDS ORDERED: TAMS.4ER PO (14:07)
--- NOTE | 2024-03-16 16:20 | NUR ---
IV PULLED INTACT. NO TELE. PT DISCHARGE REVIEWED WITH PT, HE VERBALIZED UNDERSTANDING MEDS AND INSTRUCTIONS. WHEELED PT TO DOOR AT 1545
== END 2024-03-16 16:01 | disposition home or self-care (01) | DRG 189 ==
LOC: ER 13:20 → PCU 13:21 → MEDS 03-12 15:00 → PCU 03-12 15:00 → MEDS 03-13 10:12
PROVIDERS: Family Medicine; Internal Medicine; Nurse Practitioner Acute Care; Student in an Organized Health Care Education/Training Program; ADMIT Student in an Organized Health Care Education/Training Program
DX: J96.01 Acute respiratory failure with hypoxia (principal); J44.1 Chronic obstructive pulmonary disease with (acute) exacerbation; I48.20 Chronic atrial fibrillation, unspecified; F03.90 Unspecified dementia, unspecified severity, without behavioral disturbance, psychotic disturbance, mood disturbance, and anxiety; F15.90 Other stimulant use, unspecified, uncomplicated; F17.210 Nicotine dependence, cigarettes, uncomplicated; I10 Essential (primary) hypertension; N40.0 Benign prostatic hyperplasia without lower urinary tract symptoms; Z79.01 Long term (current) use of anticoagulants; Z79.899 Other long term (current) drug therapy; F10.90 Alcohol use, unspecified, uncomplicated; Z71.51 Drug abuse counseling and surveillance of drug abuser; R73.9 Hyperglycemia, unspecified; T38.0X5A Adverse effect of glucocorticoids and synthetic analogues, initial encounter; Z71.6 Tobacco abuse counseling; R10.9 Unspecified abdominal pain; F43.10 Post-traumatic stress disorder, unspecified; G89.29 Other chronic pain; M54.9 Dorsalgia, unspecified; K21.9 Gastro-esophageal reflux disease without esophagitis; F32.A Depression, unspecified; Z85.46 Personal history of malignant neoplasm of prostate
CPT/HCPCS: 36415; 71046; 80048; 80053; 80069; 81001; 83735; 83880; 84145; 85025; 85610; 87086; 93005; 93010; 94640; 94664; 94760; 94762; 96365; 96366; 96374; 96375; 96376; 97129; 97165; 99285-25; A9270; G0378; J0456; J0696; J1885; J2919; J7050; J7512

== ENCOUNTER 2024-06-08 14:06 | Emergency (ER) | payer OTHER ==
[~2024-06-08] VITALS: Ht 165.1 cm; Wt 74.8 kg
[~2024-06-08 14:06] MED LIST changes: +Acetaminophen650 M1 PO; +DONEPEZIL HCL10 MG PO; +FLUT1DIS2 INH; +Hair, Skin & N1 EACH PO; +MIRALAX11910 PO; +SIME80CH PO; +Vitamin B-12100 MCG PO
[2024-06-08 14:22] VITALS: BP 135/108
[2024-06-08] MEDS ORDERED: HYDROmorphone HCl/Pf 1MG SYR IV ONE (14:25)
[2024-06-08] MEDS ORDERED: Diphth,Pertuss(Acell),Tet Vac 0.5 ML VIAL IM ONE (14:25)
[2024-06-08] MEDS ORDERED: Lactated Ringer's 1,000 ML IV ONE (14:25)
[2024-06-08 14:44] LABS: Source, Urine Clean Catch
[2024-06-08 14:50] LABS: Appearance, Urine Clear (Clear); Bilirubin, Urine Neg (Neg); Blood, Urine Neg (Neg); Color, Urine Yellow (P-Yellow); Glucose Qualitative, Urine Neg (Neg); Ketones, Urine Neg (Neg); Leukocyte Esterase, Urine Neg (Neg); Nitrite, Urine Neg (Neg); Protein, Urine 1+ (Neg); Specific Gravity, Urine 1.015 (1.003-1.022); Urobilinogen, Urine NORM (Normal); pH, Urine 6.5 (5.0-8.0)
[2024-06-08 14:54] LABS: Prothrombin Time Results 10.7 Sec (9.7-11.5)
[2024-06-08 14:57] LABS: Albumin, Blood 2.9 g/dL (3.4-5.0); Albumin/Globulin Ratio 0.7 (0.8-1.8); Bilirubin, Total 0.5 mg/dL (0.1-1.0); Bun/Creatinine Ratio 10.2 (12.0-20.0); Calcium, Blood 9.1 mg/dL (8.5-10.1); Creatinine, Blood 1.27 mg/dL (0.60-1.20); Globulin, Blood 3.9 g/dL (2.2-4.0); Potassium, Blood 4.5 mmol/L (3.5-5.5); Total Protein, Blood 6.8 g/dL (6.4-8.2)
[2024-06-08 15:02] LABS: BASOPHILS ABSOLUTE AUTO 0.06 K/mm3 (0.00-0.23); BASOPHILS PERCENT AUTO 1 % (0-2); EOSINOPHILS ABSOLUTE AUTO 0.24 K/mm3 (0.00-0.68); EOSINOPHILS PERCENT AUTO 3 % (0-6); Hematocrit 45.8 % (37.0-53.0); Hemoglobin 15.4 g/dL (13.5-17.5); IMMATURE GRAN ABSOLUTE AUTO 0.05 K/mm3 (0.00-0.10); IMMATURE GRAN PERCENT AUTO 1 % (0-1); LYMPHOCYTES ABSOLUTE AUTO 0.64 K/mm3 (0.84-5.20); LYMPHOCYTES PERCENT AUTO 7 % (21-46); MONOCYTES ABSOLUTE AUTO 0.93 K/mm3 (0.16-1.47); MONOCYTES PERCENT AUTO 10 % (4-13); Mean Corpuscular HGB 31.5 pg (26.0-34.0); Mean Corpuscular HGB Conc 33.6 g/dL (31.5-36.5); Mean Corpuscular Volume 94 fL (80-100); NEUTROPHILS ABSOLUTE AUTO 7.74 K/mm3 (1.96-9.15); NEUTROPHILS PERCENT AUTO 80 % (41-73); RDW Coefficient Variation 14.7 % (11.7-14.2); RDW Standard Deviation 50.8 fL (35.1-46.3); Red Blood Cell Count 4.89 M/mm3 (4.30-5.90); White Blood Cell Count 9.66 K/mm3 (4.00-11.30)
[2024-06-08 15:20] LABS: Platelet Count 198 K/mm3 (150-400)
[2024-06-08] MEDS ORDERED: Ketorolac Tromethamine 15mg Vial IV ONE (17:00)
[2024-06-08] MEDS ORDERED: Methocarbamol 500 MG Tab PO ONE (17:00)
[2024-06-08] MEDS ORDERED: Robaxin750 MG PO (19:46)
[2024-06-08] MEDS ORDERED: RX Prepack 6 Tabs Oxycodone 5mg UD ONE (19:50)
[2024-06-09] MEDS ORDERED: AMOCLA875 PO (01:44)
== END 2024-06-08 19:52 | disposition home or self-care (01) ==
LOC: ER 14:06
PROVIDERS: Student in an Organized Health Care Education/Training Program
DX: S02.32XA Fracture of orbital floor, left side, initial encounter for closed fracture (principal); S02.2XXA Fracture of nasal bones, initial encounter for closed fracture; S01.112A Laceration without foreign body of left eyelid and periocular area, initial encounter; S20.319A Abrasion of unspecified front wall of thorax, initial encounter; M79.604 Pain in right leg; M25.511 Pain in right shoulder; M79.644 Pain in right finger(s); V59.40XA Driver of pick-up truck or van injured in collision with unspecified motor vehicles in traffic accident, initial encounter; I10 Essential (primary) hypertension; I48.91 Unspecified atrial fibrillation; J44.9 Chronic obstructive pulmonary disease, unspecified; F03.90 Unspecified dementia, unspecified severity, without behavioral disturbance, psychotic disturbance, mood disturbance, and anxiety; F17.210 Nicotine dependence, cigarettes, uncomplicated; Z79.899 Other long term (current) drug therapy; Z79.01 Long term (current) use of anticoagulants
CPT/HCPCS: 12013; 70450; 70486; 71260; 72125; 73030; 73110; 73130; 74177; 80053; 80320; 83690; 84484; 85025; 85610; 85730; 86850; 86900; 86901; 90471; 90715; 93005; 93010; 94760; 96361-59; 96374-59; 96375-59; 99284-25; A9270; J1170; J1885; J7120; Q9967

== ENCOUNTER 2024-10-03 02:45 | Emergency (ER) | payer OTHER ==
[~2024-10-03] VITALS: Ht 170.2 cm; Wt 81.7 kg
[~2024-10-03 02:45] MED LIST changes: +AMOCLA875 PO; +B-12500 MC2 PO; +DILT180 PO; +FURO40 PO; +METO50ER PO; +NALOXONE H0.4 MG/11 IM; +POTA10T PO; +Prednisone10 MG PO; +Robaxin750 MG PO
[2024-10-03] MEDS ORDERED: Ipratropium/Albuterol SulF 2.5-0.5MG/3 ML Amp INH ONE (03:25)
[2024-10-03] MEDS ORDERED: Azithromycin 250 MG Tab PO ONE (03:30)
[2024-10-03] MEDS ORDERED: PredniSONE 20 MG Tab PO ONE (03:30)
[2024-10-03] MEDS ORDERED: Albuterol 2.5 MG/3 ML VIAL INH SCH (03:30)
[2024-10-03 03:35] LABS: BASOPHILS ABSOLUTE AUTO 0.02 K/mm3 (0.00-0.23); BASOPHILS PERCENT AUTO 0 % (0-2); EOSINOPHILS ABSOLUTE AUTO 0.01 K/mm3 (0.00-0.68); EOSINOPHILS PERCENT AUTO 0 % (0-6); Hematocrit 43.5 % (37.0-53.0); Hemoglobin 14.7 g/dL (13.5-17.5); IMMATURE GRAN ABSOLUTE AUTO 0.08 K/mm3 (0.00-0.10); IMMATURE GRAN PERCENT AUTO 1 % (0-1); LYMPHOCYTES ABSOLUTE AUTO 0.43 K/mm3 (0.84-5.20); LYMPHOCYTES PERCENT AUTO 3 % (21-46); MONOCYTES ABSOLUTE AUTO 1.43 K/mm3 (0.16-1.47); MONOCYTES PERCENT AUTO 11 % (4-13); Mean Corpuscular HGB 31.3 pg (26.0-34.0); Mean Corpuscular HGB Conc 33.8 g/dL (31.5-36.5); Mean Corpuscular Volume 93 fL (80-100); Mean Platelet Volume 10.6 fL (9.1-12.4); NEUTROPHILS ABSOLUTE AUTO 11.54 K/mm3 (1.96-9.15); NEUTROPHILS PERCENT AUTO 85 % (41-73); Platelet Count 247 K/mm3 (150-400); RDW Coefficient Variation 13.5 % (11.7-14.2); RDW Standard Deviation 45.8 fL (35.1-46.3); White Blood Cell Count 13.51 K/mm3 (4.00-11.30)
[2024-10-03 04:19] LABS: Albumin, Blood 2.9 g/dL (3.4-5.0); Albumin/Globulin Ratio 0.6 (0.8-1.8); Bilirubin, Total 0.6 mg/dL (0.1-1.0); Calcium, Blood 9.7 mg/dL (8.5-10.1); Creatinine, Blood 1.22 mg/dL (0.60-1.20); Globulin, Blood 4.8 g/dL (2.2-4.0); Potassium, Blood 4.1 mmol/L (3.5-5.5); Total Protein, Blood 7.7 g/dL (6.4-8.2)
[2024-10-03] MEDS ORDERED: Droperidol 5 mg/2 ml Vial IV ONE (04:20)
[2024-10-03 04:41] LABS: Base Excess Venous 7.3 mmol/L; Bicarbonate Venous 30.1 mmol/L (24.0-30.0); PCO2 Venous 43.8 mmHg (38-42); pH Blood Venous 7.46 (7.34-7.37)
[2024-10-03] MEDS ORDERED: dilTIAZem HCL 90 MG CAP.ER.12H PO ONE (05:25)
[2024-10-03] MEDS ORDERED: Furosemide 10 MG/ML 4ML Vial IV ONE (05:35)
[2024-10-03] MEDS ORDERED: PRED20 PO (05:38)
[2024-10-03] MEDS ORDERED: AZIT250 PO (05:38)
[2024-10-03 06:15] VITALS: BP 104/80
== END 2024-10-03 07:17 | disposition home or self-care (01) ==
LOC: ER 02:45
PROVIDERS: Student in an Organized Health Care Education/Training Program
DX: J96.11 Chronic respiratory failure with hypoxia (principal); J44.1 Chronic obstructive pulmonary disease with (acute) exacerbation; I48.91 Unspecified atrial fibrillation; Z79.01 Long term (current) use of anticoagulants; Z99.81 Dependence on supplemental oxygen; I11.0 Hypertensive heart disease with heart failure; I50.9 Heart failure, unspecified; K21.9 Gastro-esophageal reflux disease without esophagitis; F17.210 Nicotine dependence, cigarettes, uncomplicated; Z79.899 Other long term (current) drug therapy
CPT/HCPCS: 71045; 80053; 82803; 83735; 83880; 84145; 85025; 93005; 93010; 94644; 94664; 96365; 96375; 99285-25; A9270; J1790; J1940; J7512

== ENCOUNTER 2024-10-21 22:05 | Emergency (ER) | payer OTHER ==
[~2024-10-21] VITALS: Ht 170.2 cm; Wt 81.7 kg
[~2024-10-21 22:05] MED LIST changes: +AZIT250 PO; +PRED20 PO
[2024-10-21 22:15] VITALS: BP 162/110
[2024-10-21 23:52] LABS: BASOPHILS ABSOLUTE AUTO 0.06 K/mm3 (0.00-0.23); BASOPHILS PERCENT AUTO 1 % (0-2); EOSINOPHILS PERCENT AUTO 2 % (0-6); Hematocrit 46.6 % (37.0-53.0); Hemoglobin 15.6 g/dL (13.5-17.5); IMMATURE GRAN ABSOLUTE AUTO 0.08 K/mm3 (0.00-0.10); IMMATURE GRAN PERCENT AUTO 1 % (0-1); LYMPHOCYTES ABSOLUTE AUTO 0.51 K/mm3 (0.84-5.20); LYMPHOCYTES PERCENT AUTO 4 % (21-46); MONOCYTES ABSOLUTE AUTO 0.84 K/mm3 (0.16-1.47); MONOCYTES PERCENT AUTO 7 % (4-13); Mean Corpuscular HGB 31.2 pg (26.0-34.0); Mean Corpuscular HGB Conc 33.5 g/dL (31.5-36.5); Mean Corpuscular Volume 93 fL (80-100); Mean Platelet Volume 10.8 fL (9.1-12.4); NEUTROPHILS ABSOLUTE AUTO 11.24 K/mm3 (1.96-9.15); NEUTROPHILS PERCENT AUTO 87 % (41-73); Platelet Count 260 K/mm3 (150-400); RDW Coefficient Variation 14.6 % (11.7-14.2); RDW Standard Deviation 47.8 fL (35.1-46.3); White Blood Cell Count 12.93 K/mm3 (4.00-11.30)
[2024-10-22 00:13] LABS: Albumin, Blood 3.2 g/dL (3.4-5.0); Albumin/Globulin Ratio 0.7 (0.8-1.8); Bilirubin, Total 0.5 mg/dL (0.1-1.0); Calcium, Blood 9.4 mg/dL (8.5-10.1); Creatinine, Blood 1.66 mg/dL (0.60-1.20); Globulin, Blood 4.7 g/dL (2.2-4.0); Total Protein, Blood 7.9 g/dL (6.4-8.2)
== END 2024-10-22 00:51 | disposition home or self-care (01) ==
LOC: ER 22:05
PROVIDERS: Student in an Organized Health Care Education/Training Program
DX: R11.0 Nausea (principal); R61 Generalized hyperhidrosis; T44.1X5A Adverse effect of other parasympathomimetics [cholinergics], initial encounter; Z79.899 Other long term (current) drug therapy
CPT/HCPCS: 71045; 80053; 85025; 93005; 93010; 99283-25

== ENCOUNTER 2025-01-28 07:11 | Emergency (ER) | payer OTHER ==
[~2025-01-28] VITALS: Ht 167.6 cm; Wt 81.7 kg
[2025-01-28] MEDS ORDERED: Ipratropium/Albuterol SulF 2.5-0.5MG/3 ML Amp INH ONE (07:25)
[2025-01-28] MEDS ORDERED: MethylPREDNISolone Sod Succ 125 MG Vial IV ONE (07:25)
[2025-01-28] MEDS ORDERED: NS 1,000 ML IV SCH (07:25)
[2025-01-28 07:38] LABS: BASOPHILS ABSOLUTE AUTO 0.06 K/mm3 (0.00-0.23); BASOPHILS PERCENT AUTO 1 % (0-2); EOSINOPHILS ABSOLUTE AUTO 0.21 K/mm3 (0.00-0.68); EOSINOPHILS PERCENT AUTO 2 % (0-6); Hematocrit 42.1 % (37.0-53.0); Hemoglobin 13.8 g/dL (13.5-17.5); IMMATURE GRAN ABSOLUTE AUTO 0.02 K/mm3 (0.00-0.10); IMMATURE GRAN PERCENT AUTO 0 % (0-1); LYMPHOCYTES ABSOLUTE AUTO 0.61 K/mm3 (0.84-5.20); LYMPHOCYTES PERCENT AUTO 7 % (21-46); MONOCYTES ABSOLUTE AUTO 1.07 K/mm3 (0.16-1.47); MONOCYTES PERCENT AUTO 12 % (4-13); Mean Corpuscular HGB 32.2 pg (26.0-34.0); Mean Corpuscular HGB Conc 32.8 g/dL (31.5-36.5); Mean Corpuscular Volume 98 fL (80-100); NEUTROPHILS ABSOLUTE AUTO 6.74 K/mm3 (1.96-9.15); NEUTROPHILS PERCENT AUTO 77 % (41-73); Platelet Count 226 K/mm3 (150-400); RDW Coefficient Variation 14.7 % (11.7-14.2); RDW Standard Deviation 53.3 fL (35.1-46.3); Red Blood Cell Count 4.29 M/mm3 (4.30-5.90); White Blood Cell Count 8.71 K/mm3 (4.00-11.30)
[2025-01-28 07:42] LABS: Base Excess Venous 2.8 mmol/L; PCO2 Venous 47.2 mmHg (38-42); pH Blood Venous 7.38 (7.34-7.37)
[2025-01-28 08:01] LABS: Albumin, Blood 2.8 g/dL (3.4-5.0); Albumin/Globulin Ratio 0.7 (0.8-1.8); Bilirubin, Total 0.4 mg/dL (0.1-1.0); Bun/Creatinine Ratio 19.3 (12.0-20.0); Calcium, Blood 8.6 mg/dL (8.5-10.1); Creatinine, Blood 1.45 mg/dL (0.60-1.20); Globulin, Blood 3.9 g/dL (2.2-4.0); Magnesium, Blood 2.3 mg/dL (1.6-2.4); Potassium, Blood 4.8 mmol/L (3.5-5.5); Total Protein, Blood 6.7 g/dL (6.4-8.2)
[2025-01-28 08:28] LABS: Influenza A, PCR NEGATIVE (NEGATIVE); Influenza B, PCR NEGATIVE (NEGATIVE); Resp Syncytial Virus, PCR NEGATIVE (NEGATIVE); SARS-Cov-2 (COVID-19) PCR, MMC NEGATIVE (NEGATIVE)
[2025-01-28 09:50] LABS: Source, Urine Clean Catch
[2025-01-28 09:53] LABS: Appearance, Urine Clear (Clear); Bilirubin, Urine Neg (Neg); Blood, Urine Neg (Neg); Color, Urine Yellow (P-Yellow); Glucose Qualitative, Urine Neg (Neg); Ketones, Urine Neg (Neg); Leukocyte Esterase, Urine Neg (Neg); Nitrite, Urine Neg (Neg); Protein, Urine Neg (Neg); Specific Gravity, Urine 1.015 (1.003-1.022); Urobilinogen, Urine 1+ (Normal)
[2025-01-28 10:04] LABS: U Amphetamine Screen DETECTED; U Barbituate Screen Not Detected; U Benzodiazapine Screen Not Detected; U Buprenorphine Screen Not Detected; U Cannabinoids Screen Not Detected; U Cocaine Screen Not Detected; U Methadone Screen Not Detected; U Methamphetamine Screen DETECTED; U Opiates Screen Not Detected; U Oxycodone Screen Not Detected; U Phencyclidine Screen Not Detected
[2025-01-28 10:05] VITALS: BP 112/77
[2025-01-28] MEDS ORDERED: PRED20 PO (10:54)
== END 2025-01-28 11:10 | disposition home or self-care (01) ==
LOC: ER 07:11
PROVIDERS: Emergency Medicine
DX: J44.1 Chronic obstructive pulmonary disease with (acute) exacerbation (principal); I48.91 Unspecified atrial fibrillation; R53.1 Weakness; I10 Essential (primary) hypertension; F43.10 Post-traumatic stress disorder, unspecified; K21.9 Gastro-esophageal reflux disease without esophagitis; F17.210 Nicotine dependence, cigarettes, uncomplicated; Z79.01 Long term (current) use of anticoagulants; Z79.899 Other long term (current) drug therapy; Z79.2 Long term (current) use of antibiotics
CPT/HCPCS: 0241U; 71045; 74177; 80053; 80320; 81003; 82803; 83690; 83735; 84484; 85025; 93005; 93010; 94640; 94664; 96361; 96374; 99285-25; J2919; J7030; Q9967

== ENCOUNTER 2025-03-25 10:50 | Day surgery (SDC) | payer OTHER ==
[~2025-03-25] VITALS: Ht 170.2 cm; Wt 77.8 kg
[~2025-03-25 10:50] MED LIST changes: +ACULAR5 ML; +Balanced Salt Epinephrine Irrigation Solution 500 mL IR SCH; +DICLOFENAC SOD100 GM TP; +Diazepam 5 MG Tab PO PRN; +Diazepam 5 MG Tab PO SCH; +Lidocaine HCl/Pf 1% 5 ML VIAL XX SCH; +Moxifloxacin HCL 0.5 MG/0.1 ML 0.4MLSYR LEFTEYE SCH; +NS 500 ML IV ONE; +OFLOXACIN5 M9 BOTHEARS; +Ondansetron 4 MG SoluTab MM PRN; +PHENYLEPHRINE\\TROPICAMIDE\\TETRACAINE OPHTHALMIC DILATING SOLN LEFTEYE PRN; +PRED FORTE5 ML BOTHEYES; +Povidone-Iodine 450 DROP/30 ML Solution LEFTEYE SCH; +Povidone-Iodine 450 DROP/30 ML Solution ONE; +Tetracaine HCl/Pf 0.5% Opth Soln 4 ml ONE; +Triamcinolone Inj Susp 40 MG / ML 1ML Vial INJ SCH; +Triamcinolone Inj Susp 40 MG / ML 1ML Vial ONE
[2025-03-25] MEDS ORDERED: AMLO5 (11:43)
[2025-03-25] MEDS ORDERED: Robaxin750 MG (11:48)
[2025-03-25] MEDS ORDERED: SIME80CH (11:50)
[2025-03-25] MEDS ORDERED: NS 500 ML IV ONE ×2 (11:50→13:38)
--- NOTE | 2025-03-25 11:59 | NUR ---
03/25/25 1159 Xochitl Nielson PATIENT ARRIVED TO PRE-OP ROOM DIARPHORETIC AND RR 28, BP 95/67, PATIENT DENIES CHEST PAIN OR SOB. PT STATES HE IS ALWAYS WOBBLY WALKING FROM A PREVIOUS STOKE. PT DENIES LIGHTHEADEDNESS. HOOKED UP TO 3 LEAD RHYTHM STRIP- MONITOR ALARMS A-FIB AND CHART NOTES AFIB WELL. DR PRASAD AND DR DOAN NOTIFIED. DR DOAN CAME IN TO SEE PATIENT AND LOOK AT CHART. BP CYCLING EVERY 3 MINUTES, BUT PATIENT IS SOMETIMES MOVING DURING BLOOD PRESSURE MONITORING. NO NEW ORDERS RECEIVED. DR PRASAD IN TO SEE PATIENT AT 1146, UPDATED, NO NEW ORDERS RECEIVED. 1155: RXI,RN DISCUSSED PATIENT PRESENTATION WITH DR DOAN AND CONTINUED LOW BLOOD PRESSURES. PER DR DOAN GIVE 250ML BOLUS NORMAL SALINE NOW.
[2025-03-25] MEDS ORDERED: Midazolam HCl 1MG / ML 2ML Vial ONE (12:05)
[2025-03-25] MEDS ORDERED: FentaNYL Citrate 50 MCG/ML 2 ML Injection ONE (12:05)
--- NOTE | 2025-03-25 12:52 | NUR ---
03/25/[address] AT BEDSIDE
[2025-03-25 13:10] VITALS: BP 92/77
== END 2025-03-25 13:46 | disposition home or self-care (01) ==
LOC: ORSCSDS 10:50
PROVIDERS: Ophthalmology
PROC: 08RK3JZ Replacement of Left Lens with Synthetic Substitute, Percutaneous Approach (ICD-10-PCS; principal; 2025-03-25 12:30)
DX: E11.36 Type 2 diabetes mellitus with diabetic cataract (principal); H25.813 Combined forms of age-related cataract, bilateral; H52.202 Unspecified astigmatism, left eye; H35.89 Other specified retinal disorders; I48.91 Unspecified atrial fibrillation; J44.9 Chronic obstructive pulmonary disease, unspecified; I10 Essential (primary) hypertension; I73.9 Peripheral vascular disease, unspecified; F43.10 Post-traumatic stress disorder, unspecified; F17.210 Nicotine dependence, cigarettes, uncomplicated; Z79.01 Long term (current) use of anticoagulants; Z79.899 Other long term (current) drug therapy
CPT/HCPCS: 82947; J2250; J3010; J3301; J7040; V2632

== ENCOUNTER 2025-05-05 08:37 | Emergency (ER) | payer OTHER ==
[~2025-05-05] VITALS: Ht 170.2 cm; Wt 81.7 kg
[~2025-05-05 08:37] MED LIST changes: +AMLO5; -Balanced Salt Epinephrine Irrigation Solution 500 mL IR SCH; -Diazepam 5 MG Tab PO PRN; -Diazepam 5 MG Tab PO SCH; -Lidocaine HCl/Pf 1% 5 ML VIAL XX SCH; -Moxifloxacin HCL 0.5 MG/0.1 ML 0.4MLSYR LEFTEYE SCH; -NS 500 ML IV ONE; -Ondansetron 4 MG SoluTab MM PRN; -PHENYLEPHRINE\\TROPICAMIDE\\TETRACAINE OPHTHALMIC DILATING SOLN LEFTEYE PRN; -Povidone-Iodine 450 DROP/30 ML Solution LEFTEYE SCH; -Povidone-Iodine 450 DROP/30 ML Solution ONE; +Robaxin750 MG; +SIME80CH; -Tetracaine HCl/Pf 0.5% Opth Soln 4 ml ONE; -Triamcinolone Inj Susp 40 MG / ML 1ML Vial INJ SCH; -Triamcinolone Inj Susp 40 MG / ML 1ML Vial ONE
[2025-05-05 08:47] VITALS: BP 148/106
== END 2025-05-05 09:07 | disposition home or self-care (01) ==
LOC: ER 08:37
DX: I48.91 Unspecified atrial fibrillation (principal); Z59.89 Other problems related to housing and economic circumstances
CPT/HCPCS: 99285-25

== ENCOUNTER 2025-05-27 12:47 | Day surgery (SDC) | payer OTHER ==
[~2025-05-27] VITALS: Ht 170.2 cm; Wt 78.0 kg
[~2025-05-27 12:47] MED LIST changes: +Balanced Salt Epinephrine Irrigation Solution 500 mL IR SCH; +Moxifloxacin HCL 0.5 MG/0.1 ML 0.4MLSYR RIGHTEYE SCH; +NS 500 ML IV ONE; +PHENYLEPHRINE\\TROPICAMIDE\\TETRACAINE OPHTHALMIC DILATING SOLN RIGHTEYE PRN; +Povidone-Iodine 450 DROP/30 ML Solution ONE; +Povidone-Iodine 450 DROP/30 ML Solution RIGHTEYE SCH; +Tetracaine HCl/Pf 0.5% Opth Soln 4 ml ONE; +Triamcinolone Inj Susp 40 MG / ML 1ML Vial INJ SCH; +Triamcinolone Inj Susp 40 MG / ML 1ML Vial ONE
[2025-05-27] MEDS ORDERED: Metoprolol Tartrate 5 ML IV ONE (13:15)
--- NOTE | 2025-05-27 13:25 | NUR ---
05/27/25 1325 Ivana Baird PATIENT'S HEART RATE WAS VERY RAPID UPON AUSCULTATION. PT HAS HX AFIB. RHYTHM STRIP OBTAINED AND SHOWS HEART RATE RANGING FROM 130-162. RHYTHM STRIP PRINTED AND TAKEN TO DR ALVARENGA FOR REVIEW. PER DR ALVARENGA, ADMINISTER METOPROLOL 2MG IV X1 ONCE IV IS ESTABLISHED. PT IS NOTED TO BE DIAPHORETIC IN PREOP AND HAD A URINARY ACCIDENT WHILE LAYING IN BED. PT DENIES ANY ALCOHOL INTAKE TODAY. DR PRASAD NOTIFIED OF THIS. PER DR PRASAD GIVE THE METOPROLOL ORDERED BY DR ALVARENGA TO SEE IF THIS HELPS ACHIEVE BETTER CONTROL OF PATIENT'S HEART RATE. PT DENIES CHEST PAIN, CHEST PRESSURE, SOB, DIZZINESS, LIGHTHEADEDNESS, SYNCOPE.
[2025-05-27] MEDS ORDERED: NS 500 ML IV ONE (13:37)
[2025-05-27] MEDS ORDERED: FentaNYL Citrate 50 MCG/ML 2 ML Injection ONE (13:54)
[2025-05-27 14:18] VITALS: BP 113/80
--- NOTE | 2025-05-27 14:25 | NUR ---
05/27/25 1425 Nitesh Alonso PT HR TACHY RUNNING BETWEEN 105-118. OK TO D/C HOME PER ANESTHESIA THIS IS PT'S BASELINE AND BETA ISAIAS WAS GIVEN IN PREOP.
== END 2025-05-27 14:39 | disposition home or self-care (01) ==
LOC: ORSCSDS 12:47
PROVIDERS: Ophthalmology
PROC: 08RJ3JZ Replacement of Right Lens with Synthetic Substitute, Percutaneous Approach (ICD-10-PCS; principal; 2025-05-27 14:30)
DX: H25.811 Combined forms of age-related cataract, right eye (principal); J44.9 Chronic obstructive pulmonary disease, unspecified; I48.91 Unspecified atrial fibrillation; I10 Essential (primary) hypertension; F03.90 Unspecified dementia, unspecified severity, without behavioral disturbance, psychotic disturbance, mood disturbance, and anxiety; Z86.73 Personal history of transient ischemic attack (TIA), and cerebral infarction without residual deficits; I73.9 Peripheral vascular disease, unspecified; F43.10 Post-traumatic stress disorder, unspecified; N40.0 Benign prostatic hyperplasia without lower urinary tract symptoms; Z85.46 Personal history of malignant neoplasm of prostate; Z79.01 Long term (current) use of anticoagulants; Z79.899 Other long term (current) drug therapy; H52.201 Unspecified astigmatism, right eye
CPT/HCPCS: J3010; J3301; J7040; V2632

== ENCOUNTER 2025-09-03 15:47 | Emergency (ER) | payer OTHER ==
[~2025-09-03] VITALS: Ht 170.2 cm; Wt 81.7 kg
[~2025-09-03 15:47] MED LIST changes: -Balanced Salt Epinephrine Irrigation Solution 500 mL IR SCH; -Moxifloxacin HCL 0.5 MG/0.1 ML 0.4MLSYR RIGHTEYE SCH; -NS 500 ML IV ONE; +ONDA4ODT MM; -PHENYLEPHRINE\\TROPICAMIDE\\TETRACAINE OPHTHALMIC DILATING SOLN RIGHTEYE PRN; -Povidone-Iodine 450 DROP/30 ML Solution ONE; -Povidone-Iodine 450 DROP/30 ML Solution RIGHTEYE SCH; -Tetracaine HCl/Pf 0.5% Opth Soln 4 ml ONE; -Triamcinolone Inj Susp 40 MG / ML 1ML Vial INJ SCH; -Triamcinolone Inj Susp 40 MG / ML 1ML Vial ONE
[2025-09-03 16:56] LABS: BASOPHILS ABSOLUTE AUTO 0.03 K/mm3 (0.00-0.23); BASOPHILS PERCENT AUTO 0 % (0-2); EOSINOPHILS ABSOLUTE AUTO 0.09 K/mm3 (0.00-0.68); EOSINOPHILS PERCENT AUTO 1 % (0-6); Hematocrit 42.1 % (37.0-53.0); Hemoglobin 13.4 g/dL (13.5-17.5); IMMATURE GRAN ABSOLUTE AUTO 0.03 K/mm3 (0.00-0.10); IMMATURE GRAN PERCENT AUTO 0 % (0-1); LYMPHOCYTES ABSOLUTE AUTO 0.27 K/mm3 (0.84-5.20); LYMPHOCYTES PERCENT AUTO 3 % (21-46); MONOCYTES ABSOLUTE AUTO 0.37 K/mm3 (0.16-1.47); MONOCYTES PERCENT AUTO 4 % (4-13); Mean Corpuscular HGB Conc 31.8 g/dL (31.5-36.5); Mean Corpuscular Volume 99 fL (80-100); NEUTROPHILS ABSOLUTE AUTO 9.44 K/mm3 (1.96-9.15); NEUTROPHILS PERCENT AUTO 92 % (41-73); NRBC ABSOLUTE 0.00 K/mm3 (0.00-0.02); NRBC Auto 0.0 /100 WBC (0.0-0.2); Platelet Count 207 K/mm3 (150-400); RDW Coefficient Variation 14.4 % (11.7-14.2); RDW Standard Deviation 51.5 fL (35.1-46.3)
[2025-09-03 17:07] LABS: Alanine Aminotransfer (ALT/SGP 25.0 U/L (12-78); Albumin, Blood 3.0 g/dL (3.4-5.0); Albumin/Globulin Ratio 0.8 (0.8-1.8); Anion Gap 7.0 mmol/L (3-11); Aspartate Aminotrans (AST/SGOT 25.0 U/L (12-37); Bilirubin, Total 0.5 mg/dL (0.1-1.0); Blood Urea Nitrogen 22.0 mg/dL (8-24); CO2, Blood 27.0 mmol/L (21-32); Calcium, Blood 8.6 mg/dL (8.5-10.1); Chloride, Blood 110.0 mmol/L (98-108); Creatinine, Blood 1.2 mg/dL (0.60-1.20); Globulin, Blood 4.0 g/dL (2.2-4.0); Glucose, Blood 124.0 mg/dL (70-99); Potassium, Blood 5.0 mmol/L (3.5-5.5); Sodium, Blood 139.0 mmol/L (136-145); Total Protein, Blood 7.0 g/dL (6.4-8.2)
[2025-09-03] MEDS ORDERED: Metoprolol Tartrate 1 MG/ML 5 ML VIAL IV PRN (17:50)
[2025-09-03 18:00] VITALS: BP 133/105
[2025-09-03] MEDS ORDERED: PRED20 PO (18:03)
[2025-09-03] MEDS ORDERED: AZIT250 PO (18:03)
== END 2025-09-03 18:24 | disposition home or self-care (01) ==
LOC: ER 15:47
PROVIDERS: Emergency Medicine
DX: J44.1 Chronic obstructive pulmonary disease with (acute) exacerbation (principal); K92.2 Gastrointestinal hemorrhage, unspecified; I48.91 Unspecified atrial fibrillation; Z87.891 Personal history of nicotine dependence; E03.9 Hypothyroidism, unspecified; E11.22 Type 2 diabetes mellitus with diabetic chronic kidney disease; I12.0 Hypertensive chronic kidney disease with stage 5 chronic kidney disease or end stage renal disease; N18.6 End stage renal disease; Z99.2 Dependence on renal dialysis; Z79.52 Long term (current) use of systemic steroids; Z79.899 Other long term (current) drug therapy
CPT/HCPCS: 80053; 83735; 83880; 84484; 85025; 93005; 93010; 96374; 99285-25; A9270

== ENCOUNTER 2025-09-06 20:53 | Emergency (ER) | payer OTHER ==
[~2025-09-06] VITALS: Ht 170.2 cm; Wt 81.7 kg
[2025-09-06 21:14] LABS: BASOPHILS ABSOLUTE AUTO 0.06 K/mm3 (0.00-0.23); BASOPHILS PERCENT AUTO 1 % (0-2); EOSINOPHILS ABSOLUTE AUTO 0.27 K/mm3 (0.00-0.68); EOSINOPHILS PERCENT AUTO 3 % (0-6); Hematocrit 39.2 % (37.0-53.0); Hemoglobin 12.5 g/dL (13.5-17.5); IMMATURE GRAN ABSOLUTE AUTO 0.06 K/mm3 (0.00-0.10); IMMATURE GRAN PERCENT AUTO 1 % (0-1); LYMPHOCYTES ABSOLUTE AUTO 0.68 K/mm3 (0.84-5.20); LYMPHOCYTES PERCENT AUTO 6 % (21-46); MONOCYTES ABSOLUTE AUTO 1.37 K/mm3 (0.16-1.47); MONOCYTES PERCENT AUTO 13 % (4-13); Mean Corpuscular HGB Conc 31.9 g/dL (31.5-36.5); Mean Corpuscular Volume 97 fL (80-100); NEUTROPHILS ABSOLUTE AUTO 8.40 K/mm3 (1.96-9.15); NEUTROPHILS PERCENT AUTO 77 % (41-73); NRBC ABSOLUTE 0.00 K/mm3 (0.00-0.02); NRBC Auto 0.0 /100 WBC (0.0-0.2); Platelet Count 202 K/mm3 (150-400); RDW Coefficient Variation 14.3 % (11.7-14.2); RDW Standard Deviation 50.8 fL (35.1-46.3)
[2025-09-06 21:33] LABS: Alanine Aminotransfer (ALT/SGP 24.0 U/L (12-78); Albumin, Blood 2.9 g/dL (3.4-5.0); Albumin/Globulin Ratio 0.8 (0.8-1.8); Anion Gap 8.0 mmol/L (3-11); Aspartate Aminotrans (AST/SGOT 18.0 U/L (12-37); Bilirubin, Total 0.6 mg/dL (0.1-1.0); Blood Urea Nitrogen 18.0 mg/dL (8-24); CO2, Blood 29.0 mmol/L (21-32); Calcium, Blood 8.8 mg/dL (8.5-10.1); Chloride, Blood 106.0 mmol/L (98-108); Creatinine, Blood 1.08 mg/dL (0.60-1.20); Globulin, Blood 3.6 g/dL (2.2-4.0); Glucose, Blood 92.0 mg/dL (70-99); Potassium, Blood 4.0 mmol/L (3.5-5.5); Sodium, Blood 139.0 mmol/L (136-145); Total Protein, Blood 6.5 g/dL (6.4-8.2)
[2025-09-06 22:30] VITALS: BP 136/91
[2025-09-06] MEDS ORDERED: FURO20 PO (22:35)
== END 2025-09-06 22:46 | disposition home or self-care (01) ==
LOC: ER 20:53
PROVIDERS: Emergency Medicine
DX: I13.2 Hypertensive heart and chronic kidney disease with heart failure and with stage 5 chronic kidney disease, or end stage renal disease (principal); I50.20 Unspecified systolic (congestive) heart failure; E11.22 Type 2 diabetes mellitus with diabetic chronic kidney disease; N18.6 End stage renal disease; E03.9 Hypothyroidism, unspecified; Z79.899 Other long term (current) drug therapy; Z79.01 Long term (current) use of anticoagulants; Z87.891 Personal history of nicotine dependence
CPT/HCPCS: 71045; 80053; 83880; 85025; 93005; 93010; 96374; 99285-25; J1938